=== PATIENT | male | born 1960 | race Two or more races ===

== ENCOUNTER 2018-07-15 07:23 | Outpatient (CLI) | payer OTHER ==
[~2018-07-15 07:23] MED LIST: LEVSIN/SL0.125 MG PO; ZANTAC150 M3 PO
== END 2018-07-15 07:28 | disposition home or self-care (01) ==
LOC: LAB 07:23
DX: Z12.11 Encounter for screening for malignant neoplasm of colon (principal); Z12.5 Encounter for screening for malignant neoplasm of prostate; Z13.1 Encounter for screening for diabetes mellitus; R03.0 Elevated blood-pressure reading, without diagnosis of hypertension; N39.0 Urinary tract infection, site not specified

== ENCOUNTER 2019-01-02 15:05 | Outpatient (CLI) | payer OTHER | END 2019-01-02 15:28 | disposition home or self-care (01) | LOC: LAB 15:05 | DX: J11.1 Influenza due to unidentified influenza virus with other respiratory manifestations (principal); J20.0 Acute bronchitis due to Mycoplasma pneumoniae ==

== ENCOUNTER → 2019-05-24 | Emergency (ER) | payer OTHER ==
[~2019-05-24] VITALS: Ht 172.7 cm; Wt 79.4 kg
== END | disposition designated cancer center or children's hospital (05) ==
LOC: ER 03:53 → CPU-OBS 03:55 → ER 03:55
DX: I21.3 ST elevation (STEMI) myocardial infarction of unspecified site (principal)
CPT/HCPCS: G0378; G0379; 93005

== ENCOUNTER 2019-11-13 09:34 | Outpatient (CLI) | payer OTHER | END 2019-11-13 15:34 | disposition home or self-care (01) | LOC: RAD 09:34 | DX: M79.672 Pain in left foot (principal) ==

== ENCOUNTER 2020-09-18 06:34 | Outpatient (CLI) | payer OTHER | END 2020-09-18 06:45 | disposition home or self-care (01) | LOC: LAB 06:34 | PROVIDERS: ATTEND Internal Medicine Cardiovascular Disease | DX: I10 Essential (primary) hypertension (principal); E11.9 Type 2 diabetes mellitus without complications; E03.8 Other specified hypothyroidism; E78.2 Mixed hyperlipidemia; N40.0 Benign prostatic hyperplasia without lower urinary tract symptoms; E55.9 Vitamin D deficiency, unspecified; Z12.11 Encounter for screening for malignant neoplasm of colon; M12.89 Other specific arthropathies, not elsewhere classified, multiple sites; M46.47 Discitis, unspecified, lumbosacral region ==

== ENCOUNTER 2020-10-31 08:31 | Outpatient (CLI) | payer OTHER | END 2020-10-31 08:38 | disposition home or self-care (01) | LOC: MRI 08:31 | PROVIDERS: ATTEND Internal Medicine Cardiovascular Disease | DX: M48.07 Spinal stenosis, lumbosacral region (principal); M46.47 Discitis, unspecified, lumbosacral region | CPT/HCPCS: 72148 ==

== ENCOUNTER 2021-01-31 09:26 | Outpatient (CLI) | payer OTHER | END 2021-01-31 15:00 | disposition home or self-care (01) | LOC: LAB 09:26 | PROVIDERS: ATTEND Internal Medicine Gastroenterology | DX: R05 Cough (principal); R50.9 Fever, unspecified; Z20.822 Contact with and (suspected) exposure to COVID-19 ==

== ENCOUNTER 2021-09-15 08:00 | Outpatient (CLI) | payer OTHER | END 2021-09-15 08:30 | disposition home or self-care (01) | LOC: PPH VACUNA 08:00 | PROVIDERS: ATTEND Emergency Medicine Pediatric Emergency Medicine | DX: Z23 Encounter for immunization (principal) ==

== ENCOUNTER → 2021-11-24 08:58 | Outpatient (CLI) | payer OTHER | END | disposition home or self-care (01) | LOC: LAB 08:58 | PROVIDERS: ATTEND General Practice | DX: E78.5 Hyperlipidemia, unspecified (principal); Z00.00 Encounter for general adult medical examination without abnormal findings; E55.9 Vitamin D deficiency, unspecified; N39.0 Urinary tract infection, site not specified; R42 Dizziness and giddiness; R68.82 Decreased libido ==

== ENCOUNTER 2022-09-05 08:23 | Emergency (ER) | payer OTHER ==
[~2022-09-05] VITALS: Ht 175.3 cm; Wt 79.4 kg
== END 2022-09-05 12:20 | disposition home or self-care (01) ==
LOC: ER 08:23
DX: B34.9 Viral infection, unspecified (principal)

== ENCOUNTER → 2022-12-01 08:00 | Outpatient (CLI) | payer OTHER | END | disposition home or self-care (01) | LOC: LAB 08:00 | PROVIDERS: ATTEND General Practice | DX: E78.5 Hyperlipidemia, unspecified (principal); E55.9 Vitamin D deficiency, unspecified; N39.0 Urinary tract infection, site not specified; R10.9 Unspecified abdominal pain; Z12.5 Encounter for screening for malignant neoplasm of prostate; R68.82 Decreased libido; Z00.00 Encounter for general adult medical examination without abnormal findings ==

== ENCOUNTER 2022-12-02 07:42 | Outpatient (CLI) | payer OTHER | END 2022-12-02 07:48 | disposition home or self-care (01) | LOC: MRI 07:42 | PROVIDERS: ATTEND General Practice | DX: M54.9 Dorsalgia, unspecified (principal) | CPT/HCPCS: 72148 ==

== ENCOUNTER → 2023-07-22 06:03 | Outpatient (CLI) | payer OTHER ==
[2023-07-22 07:43] LABS: HEMOGLOBIN 15.3 g/dL (13-16.00); MEAN CELL VOLUME 84.8 fL (80.0-100.00); MEAN CORPUSCULAR HEMOGLOBIN 29.4 pg (27.00-32.0); MEAN CORPUSCULAR HGB CONC 34.6 g/dl (32.0-36.0); PLATELET COUNT 298 K/uL (150-450); RED BLOOD COUNT 5.19 M/uL (4.00-6.00)
[2023-07-22 07:51] LABS: URINE APPEARANCE Clear; URINE BILIRRUBIN Negative (NEGATIVE); URINE BLOOD Small; URINE COLOR Yellow; URINE GLUCOSE Negative (NEGATIVE); URINE LEUKOCYTE Negative; URINE NITRATE Negative; URINE PROTEIN Negative (NEGATIVE); URINE UROBILINOGEN 0.2 E.U./dl
[2023-07-22 07:56] LABS: URINE BACTERIA 7.5 uL (0.0-1933); URINE RBC 42.2 uL (0.0-20.8); URINE WBC 3.8 uL (0.0-23.2)
[2023-07-22 08:11] LABS: URINE EPITHELIAL CELLS 0.7 uL (0.0-38.8)
[2023-07-22 08:29] LABS: ALBUMIN 3.5 gm/dL (3.4-5.0); BILIRUBIN TOTAL 0.7 mg/dL (0.3-1.2); BILIRUBIN,CONJUGATED 0.16 mg/dL (0.0-0.2); BILIRUBIN,UNCONJUGATED 0.54 mg/dL (0.0-0.6); CALCIUM 8.8 mg/dL (8.5-10.1); CHOL HDL RATIO 3.5 (0-5.0); CREATININE SERUM 0.84 mg/dL (0.70-1.30); GFR 93.21; GLOBULINA 3.4 G/DL (2.4-3.5); POTASSIUM 4.68 mEq/L (3.5-5.1); PROSTATIC SPECIFIC ANTIGEN 3.26 NG/ML (0.010-4.00); T4 TOTAL 7.32 UG/DL (4.5-12.1); TOTAL PROTEIN 6.9 gm/dL (6.4-8.2); TSH 0.998 uIU/mL (0.358-3.74)
[2023-07-22 09:33] LABS: T3 TOTAL 1.22 ng/ml (0.846-2.02); VITAMIN D3 25 HYDROXY 59.59 ng/ml (30-120)
== END | disposition home or self-care (01) ==
LOC: LAB 06:03
PROVIDERS: ATTEND General Practice
DX: E78.5 Hyperlipidemia, unspecified (principal); E55.9 Vitamin D deficiency, unspecified; N39.0 Urinary tract infection, site not specified; R42 Dizziness and giddiness; R10.9 Unspecified abdominal pain; Z12.5 Encounter for screening for malignant neoplasm of prostate; R10.2 Pelvic and perineal pain